=== PATIENT | male | born 1950 | race Caucasian/White ===

== ENCOUNTER → 2021-08-03 | Outpatient (CLI) | payer OTHER | LOC: SJCVC 14:14 → SJCVCIMAG 14:14 | PROVIDERS: ATTEND Internal Medicine | DX: I08.0 Rheumatic disorders of both mitral and aortic valves (principal); I49.8 Other specified cardiac arrhythmias; I27.20 Pulmonary hypertension, unspecified; I10 Essential (primary) hypertension; R06.00 Dyspnea, unspecified; E78.5 Hyperlipidemia, unspecified; U07.1 COVID-19; J12.82 Pneumonia due to coronavirus disease 2019; I82.4Z1 Acute embolism and thrombosis of unspecified deep veins of right distal lower extremity; Z87.891 Personal history of nicotine dependence ==